=== PATIENT | female | born 1990 | race Caucasian/White ===

== ENCOUNTER 2016-07-22 13:51 | Emergency (ER) | payer MEDICAID ==
--- NOTE | 2016-08-31 18:52 | ER ---
ADMIT: 07/22/2016 RM/LOC: [facility] MR#: [id number] [place] [id number] MALIK CLARKEMENG WEST [address] [place] [address] Emergency Room Report SEX: F AGE: 26 : 1990 DATE: 07/22/2016 ADDENDUM: HISTORY OF PRESENT ILLNESS: This patient comes into the ER because she has a headache. This is a normal type headache for her. The pain is at the top of her head. She is nauseated and sensitive to light. No vomiting or diarrhea. PAST MEDICAL HISTORY: Asthma, seizures, vertigo, neuropathy. PAST SURGICAL HISTORY: T and A, cholecystectomy, appendectomy, hysterectomy. SOCIAL HISTORY: She smokes a half a pack of cigarettes a day, occasionally drinks alcohol. MEDICATIONS: 1. Topamax. 2. Albuterol. 3. Xanax. ALLERGIES: TO AMOXICILLIN AND PENICILLIN. REVIEW OF SYSTEMS: CONSTITUTIONAL: She denies any fevers. RESPIRATORY: No cough. GI: Nauseated. No vomiting. : No dysuria. SKIN: No rashes. NEURO: She denies any numbness in her upper or lower extremities. PHYSICAL EXAMINATION: GENERAL: This is an alert 26-year-old obese female. VITAL SIGNS: Temperature is 98.1, pulse 80, respirations 18, blood pressure 135/57, pulse ox 97% on room air. HEENT: Eyes; EOMI, PERRLA. Head, normocephalic. TMs intact with normal light reflex. Posterior pharynx is benign. Oral mucosa is moist. Nares clear. ADMIT: 07/22/2016 RM/LOC: [facility] MR#: [id number] [place] [id number] LE CLARKE [address] [facility] [address] Emergency Room Report SEX: F AGE: 26 : 1990 NECK: Supple. HEART: Regular rate and rhythm. LUNGS: Clear to auscultation. ABDOMEN: Soft. NEURO: She answers questions and speaks appropriately. She is alert and oriented x3. DIAGNOSIS: Headache. DISCUSSION: She was given Toradol 60 mg IM, Ativan 1 mg, and Phenergan 50 mg IM. She was discharged. She should go home, rest in a quiet dark place, push fluids, and follow up with her primary as needed. Please see my T-sheet. ANGUS Arriola / Simba Benitez MD / modl JOB #: [id number] CC: Simba Benitez MD, Attending Physician Jose Gould MD, Family Physician
== END 2016-07-22 14:55 | disposition home or self-care (01) ==
LOC: ER 13:51
DX: R51 Headache (principal); J45.909 Unspecified asthma, uncomplicated; F17.210 Nicotine dependence, cigarettes, uncomplicated; Z88.0 Allergy status to penicillin; Z88.1 Allergy status to other antibiotic agents; Z79.899 Other long term (current) drug therapy

== ENCOUNTER 2016-07-31 23:44 | Emergency (ER) | payer MEDICAID | END 2016-07-31 23:52 | disposition left against medical advice (07) | LOC: ER 23:44 | DX: Z53.21 Procedure and treatment not carried out due to patient leaving prior to being seen by health care provider (principal) ==

== ENCOUNTER 2016-08-31 23:18 | Emergency (ER) | payer MEDICARE, MEDICAID ==
--- NOTE | 2016-10-03 18:11 | ER ---
ADMIT: 08/31/2016 RM/LOC: ER [facility] MR#: [id number] [place], [place] [phone] LE CLARKE [address] [facility] [place] [address] Emergency Room Report SEX: F AGE: 26 : 1990 DATE: 08/31/2016 ADDENDUM: This patient comes to the ER because she is having a headache. She has had it for the last week. It is similar to all her other headaches. It is in her forehead area. She has sensitivity to light and noise and is nauseated, but has not vomited. She was given Ativan, Phenergan, and Toradol, she had received that in the past. At discharge, she should go home, rest, push fluids, and follow up with her primary as needed. Please see my T-sheet. ANGUS Arriola / Alex Winter MD / fidell JOB #: [id number] CC: Alex Winter MD, Attending Physician Alfonso Gross MD, Family Physician
== END 2016-08-31 23:55 | disposition home or self-care (01) ==
LOC: ER 23:18
DX: R51 Headache (principal); F41.9 Anxiety disorder, unspecified; F17.210 Nicotine dependence, cigarettes, uncomplicated; Z90.710 Acquired absence of both cervix and uterus; Z90.49 Acquired absence of other specified parts of digestive tract; Z88.0 Allergy status to penicillin; Z88.1 Allergy status to other antibiotic agents